=== PATIENT | female | born 1985 | race Caucasian/White ===

== ENCOUNTER 2017-12-11 16:47 | Observation (INO) | payer MEDICAID, OTHER ==
[~2017-12-11] VITALS: Ht 162.6 cm; Wt 91.6 kg
[2017-12-11] MEDS ORDERED: PREN-99 PO (17:24)
[2017-12-11] MEDS ORDERED: LEVO75TA7 PO (17:29)
[2017-12-11] MEDS ORDERED: LACTATED RINGERS 1,000 ML IV SCH ×2 (17:30→18:00)
[2017-12-11] MEDS ORDERED: CEFAZOLIN 2,000 MG in DEXT 5% WATER 100 ML IV SCH (17:45)
[2017-12-11] MEDS ORDERED: CLINDAMYCIN 600MG PREMIX 50 ML IV SCH (18:00)
[2017-12-11 18:03] LABS: CLARITY URINE CLOUDY (CLEAR); COLOR URINE YELLOW (YELLOW); KETONES URINE NEGATIVE (NEGATIVE); LEUKOCYTE ESTERASE URINE 3+ (NEGATIVE); NITRITE URINE NEGATIVE (NEGATIVE); OCCULT BLOOD URINE NEGATIVE (NEGATIVE); PROTEIN URINE NEGATIVE (NEGATIVE); SPECIFIC GRAVITY URINE 1.024 (1.005-1.030)
== END 2017-12-11 19:40 | disposition home or self-care (01) ==
LOC: L&D 16:47
PROVIDERS: ADMIT Obstetrics & Gynecology; ATTEND Obstetrics & Gynecology
DX: O26.892 Other specified pregnancy related conditions, second trimester (principal); R10.30 Lower abdominal pain, unspecified; Z3A.20 20 weeks gestation of pregnancy
CPT/HCPCS: 81003; 96365; 99281; G0378; J3490; J7120; 96360; 96361

== ENCOUNTER 2019-04-03 22:09 | Observation (INO) | payer MEDICAID ==
[~2019-04-03] VITALS: Ht 162.6 cm; Wt 92.1 kg
[~2019-04-03 22:09] MED LIST: LEVO75TA7 PO; PREN-99 PO
[2019-04-03] MEDS ORDERED: FERR325T6 PO (23:37)
[2019-04-03] MEDS ORDERED: NITR-87 PO (23:37)
[2019-04-03 23:43] LABS: CLARITY URINE CLOUDY (CLEAR); COLOR URINE YELLOW (YELLOW); KETONES URINE NEGATIVE (NEGATIVE); LEUKOCYTE ESTERASE URINE 2+ (NEGATIVE); NITRITE URINE NEGATIVE (NEGATIVE); OCCULT BLOOD URINE NEGATIVE (NEGATIVE); PH URINE 5.5 (4.5-8.0); PROTEIN URINE NEGATIVE (NEGATIVE); SPECIFIC GRAVITY URINE 1.032 (1.005-1.030); UROBILINOGEN URINE 0.2 E.U./dL (0.2-1.0)
== END 2019-04-04 00:44 | disposition home or self-care (01) ==
LOC: 8 EST LDRP 22:09
PROVIDERS: ADMIT Obstetrics & Gynecology; ATTEND Obstetrics & Gynecology
DX: O26.892 Other specified pregnancy related conditions, second trimester (principal); R10.9 Unspecified abdominal pain; Z3A.26 26 weeks gestation of pregnancy; Z98.891 History of uterine scar from previous surgery
CPT/HCPCS: 76805; 81003; 99281; G0378